=== PATIENT | male | born 1995 | race Caucasian/White ===

== ENCOUNTER 2017-06-13 21:12 | Emergency (ER) | payer SELFPAY ==
[~2017-06-13] VITALS: Ht 180.3 cm; Wt 116.4 kg
[~2017-06-13 21:12] MED LIST: IBUP-1051 PO; NAPR-56 PO
[2017-06-13] MEDS ORDERED: predniSONE 20 mg tablet PO ONE (23:10)
[2017-06-13] MEDS ORDERED: azithromycin 250mg tablet PO ONE (23:10)
[2017-06-13] MEDS ORDERED: ipratropium/albuterol 3ml nebule NEB ONE (23:10)
[2017-06-13] MEDS ORDERED: BENZ-38 PO (23:12)
[2017-06-13] MEDS ORDERED: AZIT-63 PO (23:12)
[2017-06-13] MEDS ORDERED: PRED20TA PO (23:12)
[2017-06-13 23:33] VITALS: BP 149/95
== END 2017-06-13 23:35 | disposition home or self-care (01) ==
LOC: ER 21:13
DX: J20.9 Acute bronchitis, unspecified (principal); F17.210 Nicotine dependence, cigarettes, uncomplicated; Z56.0 Unemployment, unspecified
CPT/HCPCS: 94640; 94760; 99283; J7512